=== PATIENT | female | born 1940 | race Caucasian/White ===

== ENCOUNTER 2016-10-24 19:22 | Emergency (ER) | payer OTHER, BC ==
[~2016-10-24] VITALS: Ht 157.5 cm; Wt 68.0 kg
--- NOTE | ~2016-10-24 | EKG ---
[place] [address] [facility] [place] [place] [address] ELECTROCARDIOGRAM REPORT Name: CRISTOPHER YEBOAH Room #: [facility]#: [id number] Admission: 10/24/16 Attend Phys: Discharge: 10/24/16 Date of : 38 Report #: [id number] THIS REPORT FOR: //name// [facility] ED Test Date: 2016-10-24 Test Time: 20:49:01 Pat Name: CRISTOPHER YEBOAH Department: Room: Gender: F Institute Director: Lucero EPSTEIN : 1940 Requested By: Forrest Talamantes Order Number: [id number] MD: Serjio Corbett Measurements Intervals [place] Rate: 101 P: 36 [place]: 151 QRS: -57 QRSD: 151 T: 81 QT: 390 QTc: 506 Interpretive Statements Sinus tachycardia Probable left atrial enlargement Right bundle branch block LVH with IVCD and secondary repol abnrm Electronically Signed On 10-25-2016 8:34:51 CDT by Serjio Corbett [email or web address] <ELECTRONICALLY SIGNED> By: Serjio Corbett MD 10/25/16 0834 2049 48 Serjio Corbett MD /LEONIE
[2016-10-24 19:52] LABS: HEMATOCRIT 42.5 % (37.0-47.0); HEMOGLOBIN 14.5 gm/dL (12.0-15.0); MANUAL DIFF YES; MCH 32.2 pg (26.0-34.0); MCHC 34.2 g/dL (28.0-37.0); PLATELET COUNT 272 thou/uL (150-400); RBC 4.52 mil/uL (4.20-5.00); RDW 14.5 % (10.5-14.5); WBC 9.7 thou/uL (4.0-11.0)
[2016-10-24 20:01] LABS: CALCIUM 9.1 mg/dL (8.5-10.1); CREATININE 0.9 mg/dL (0.6-1.0); POTASSIUM 3.7 mmol/L (3.5-5.1)
[2016-10-24 20:06] LABS: ALBUMIN 3.9 g/dL (3.4-5.0); TOTAL BILIRUBIN 0.6 mg/dL (<0.1-1.0); TOTAL PROTEIN 7.4 g/dL (6.4-8.2)
[2016-10-24 21:00] LABS: ABSOLUTE NEUTROPHILS 8.2 thou/uL (1.4-8.2); TOTAL CELL COUNT 100
[2016-10-24 21:01] LABS: ANISOCYTOSIS 1+; POLYCHROMASIA OCCASIONAL
[2016-10-24 21:02] LABS: POIKILOCYTOSIS SLIGHT
[2016-10-24] MEDS ORDERED: PROMETHAZINE/C118 ML PO (21:08)
[2016-10-24 21:09] LABS: NT-PRO BRAIN NAT PEPTIDE 45 pg/mL (<300); TROPONIN-I < 0.04 ng/mL (<0.04-0.07)
[2016-10-24] MEDS ORDERED: LEVAQUIN 750 M750 MG PO (21:10)
[2016-10-24] MEDS ORDERED: PROVENTIL HFA6.7 G1 INH (21:14)
[2016-10-24 21:36] VITALS: BP 138/93
== END 2016-10-24 21:38 | disposition home or self-care (01) ==
LOC: ER 19:22
PROVIDERS: Physician Assistant
DX: J18.9 Pneumonia, unspecified organism (principal); K21.9 Gastro-esophageal reflux disease without esophagitis; E78.00 Pure hypercholesterolemia, unspecified; M13.879 Other specified arthritis, unspecified ankle and foot; F10.99 Alcohol use, unspecified with unspecified alcohol-induced disorder; Z90.710 Acquired absence of both cervix and uterus; Z96.651 Presence of right artificial knee joint; Z85.3 Personal history of malignant neoplasm of breast; Z92.3 Personal history of irradiation; Z88.5 Allergy status to narcotic agent; Z88.8 Allergy status to other drugs, medicaments and biological substances

== ENCOUNTER 2016-10-25 21:21 | Inpatient (IN) | payer OTHER, BC ==
[~2016-10-25] VITALS: Ht 157.5 cm; Wt 83.5 kg
--- NOTE | ~2016-10-25 | CNG ---
[facility] [place] [address] CYTO-NONGYN REPORT PROCEDURE Name: JOHANNE ELI Room #: 247-P ADM IN M.R.#: [id number] Admission: 10/26/16 Date of : 38 Discharge: Report #: [id number] Path Case #: [id number] CYTOPATHOLOGY REPORT COLLECTION DATE: 10/28/2016 RECEIVED DATE: 10/30/2016 SUBMITTING PHYS: Dr. Madi Barr OTHER PHYS: Dr. Roni Wells CLINICAL HISTORY: Not provided. SPECIMEN(S) RECEIVED: A.Sputum * * * * * * * * * * * * FINAL DIAGNOSIS: A. Sputum: - No malignant cells identified. Reactive squamous epithelial cells present along with rare alveolar macrophages and a background of debris. PATHOLOGIST: Katie Quarles M.D. REPORT ELECTRONICALLY SIGNED BY: Katie Quarles M.D. DATE/TIME: 10/31/2016 15:45 * * * * * * * * * * * * GROSS PATHOLOGY: A. Sputum: The specimen is submitted unfixed, labeled "Johanne Eli". Received by the Cytology Department is two mL of red fluid. One ThinPrep slide was prepared. (clt 10.30.2016) LIMB DRIVER(S): KELLY Lerma[facility]) INITIAL CPT CODE(S): A; 17069 Professional services performed by [facility] at [facility] [address], [place] [address] Technical services performed by [facility] at [address] [place] [address]., [address], [place] [address]. [facility] [address] [place] [address], [address] [facility] [address] [place] [address] CYTO-NONGYN REPORT PROCEDURE Name: JOHANNE ELI Room #: 247-P ADM IN M.R.#: [id number] Admission: 10/26/16 Date of : 38 Discharge: Report #: [id number] Path Case #: [id number] [place] [address] PHONE: [phone] DIRECTOR: Hamlet Neal M.D. * * * END OF REPORT * * *
--- NOTE | ~2016-10-25 | HC ---
[facility] [place] [address] CONSULTATION Name: YEBOAHCRISTOPHER N Room #: [facility] IN M.R.#: [id number] Admission: 10/26/16 Attend Phys: David Tamayo MD Discharge: Date of : 39 Report #: [id number] THIS REPORT FOR: //name// CC: Madi Chan HISTORY OF PRESENT ILLNESS: The patient is a 76-year-old white female who was admitted to [facility] with acute respiratory failure. She was noted to have hypoxia and sepsis. She was placed on 15 liters nonrebreather. She was noted to have multifocal pneumonia, sepsis, and acute renal insufficiency. She was diagnosed with MRSA pneumonia. There is a note of some mild COPD. She has had some hyponatremia that has resolved. She is continuing in the intensive care unit, but plans are to transfer out today. Infectious disease is involved with noted bilateral pneumonia basilar with consolidation and cavitation, parainfluenza followed by an MRSA superinfection. She does have a dilated bile duct as well, question stone and gram-negative bacterial coverage was added. She has a premorbid history of lymphoma and breast cancer. We are seeing her now in rehabilitation medicine consultation. PAST MEDICAL HISTORY: Includes the hypertension, lymphoma, GERD, right breast cancer, elevated lipids, degenerative arthritis, and she has had a right total knee replacement. MEDICATIONS: Please see the full medication listing. SOCIAL HISTORY: She lives in an apartment alone, no steps, was independent, ambulatory, no gait aids, driving in the community. She does have an involved son who was an ENT physician here as well as noted multiple involved family members. REVIEW OF SYSTEMS: Did not offer any current complaints of chest pain or abdominal discomfort. She does have significant coughing and has some shortness of breath with limited activity. Did not offer any focal extremity pain complaints. PHYSICAL EXAMINATION: GENERAL: She is a pleasant 76-year-old white female, in no obvious distress. Facies are symmetric. She has considerable coughing episodes. VITAL SIGNS: Last recorded temp 96.8, pulse 90, respirations 21, blood pressure is 137/72. She is currently on 6 liters nasal prong O2. NEUROLOGIC: She is pleasant, alert, and a good historian. Facies appeared symmetric. EXTREMITIES: She has functional range of motion of both upper extremities. Strength is a grade 4-/5. DTRs are trace to 1. Lower extremities, no focal calf swelling, functional range of motion with strength a grade 4-/5. DTRs are [facility] [address] [place] [address] CONSULTATION Name: CRISTOPHER YEBOAH Room #: [facility] IN ..#: [id number] Admission: 10/26/16 Attend Phys: David Tamayo MD Discharge: Date of : 39 Report #: [id number] trace to 1. She is mod assist with sit to stand. She did take 4 steps mod assist, handheld assist. ASSESSMENT: A 76-year-old white female with the following problem list: 1. Medical complexity with generalized debilitation. 2. Acute respiratory failure with hypoxia. 3. Sepsis. 4. Bilateral pneumonia basilar with consolidation and cavitation, parainfluenza followed by methicillin-resistant Staphylococcus aureus superinfection. 5. History of lymphoma. 6. History of breast cancer. 7. Recent hemoptysis. 8. Dilated bile duct, question stone. 9. Degenerative arthritis. 10. Gastroesophageal reflux disease. 11. Elevated lipids. PLAN: We would anticipate the patient would be a good candidate for an acute in-hospital inpatient rehabilitation stay as she further medically stabilizes. I agree with physical therapy and occupational therapy currently involvement. We will be glad to follow along with you regarding her rehab therapy needs as she further medically stabilizes. By: 1140 1224 Cuauhtemoc Landeros MD /nt
--- NOTE | ~2016-10-25 | EKG ---
[place] [address] [facility] [place] [address] ELECTROCARDIOGRAM REPORT Name: CRISTOPHER YEBOAH Room #: 247-P ADM IN M.R.#: [id number] Admission: 10/26/16 Attend Phys: David Tamayo MD Discharge: Date of : 39 Report #: [id number] THIS REPORT FOR: //name// [facility] ED Test Date: 2016-10-25 Test Time: 22:00:20 Pat Name: CRISTOPHER YEBOAH Department: Room: [facility] Gender: F Banquet Prep Cook: NEFTALI : 1940 Requested By: Forrest Talamantes Order Number: [id number] MD: Earl Healy Measurements Intervals [place] Rate: 106 P: 21 [place]: 140 QRS: -51 QRSD: 133 T: 43 QT: 352 QTc: 468 Interpretive Statements Sinus tachycardia Right bundle branch block LVH with IVCD and secondary repol abnrm Compared to ECG 10/24/2016 20:49:01 No significant change was found Electronically Signed On 10-26-2016 17:32:40 CDT by Earl Healy [email or web address] <ELECTRONICALLY SIGNED> By: Earl Healy MD, LOCATED [facility]IN [facility] 10/26/16 1732 99 99 Earl Healy MD, [facility] /EPI
--- NOTE | ~2016-10-25 | 2DMMODE ---
[facility] [address] [place] [address] 2 D/M-MODE ECHOCARDIOGRAM Name: CRISTOPHER YEBOAH Room #: 247-P [facility] IN .R.#: [id number] Admission: 10/26/16 Attend Phys: Gabe Berg Discharge: Date of : 38 Date of Service: 10/26/16 1249 Report #: [id number] THIS REPORT FOR: //name// APPROVED REPORT Study performed: 10/26/2016 11:13:16 EXAM: Comprehensive 2D, Doppler, and color-flow Echocardiogram Patient Location: Bedside Room #: [facility] Status: routine Other Information Study Quality: Adequate Indications Dyspnea 2D Dimensions RVDd: 25.28 mm LVEF(%): 56.36 (>50%) IVSd: 8.75 (7-11mm) LVOT Diam: 20.34 (18-24mm) LVDd: 38.93 mm PWd: 7.91 (7-11mm) Ascending Ao: 30.62 (22-36mm) LVDs: 27.65 (25-40mm) Aortic Root: 28.54 mm Bonilla's LVEF: 56.36 % Volumes Left Atrial Volume (Systole) Single Plane 4CH: 29.47 mL Single Plane 2CH: 26.96 mL LA ESV Index: 17.00 mL/m2 Aortic Valve AoV Peak Cesar.: 1.49 m/s AO Peak Gr.: 8.82 mmHg LVOT Max P.74 mmHg LVOT Max V: 0.97 m/s GRIFFIN Vmax: 2.11 cm2 Mitral Valve E/A Ratio: 0.6 MV Decel. Time: 119.37 ms MV E Max Cesar.: 0.65 m/s MV A Cesar.: 1.01 m/s MV PHT: 34.62 ms IVRT: 76.12 ms [facility] [place] [address] 2 D/M-MODE ECHOCARDIOGRAM Name: CRISTOPHER YEBOAH Room #: 247-P [facility].#: [id number] Admission: 10/26/16 Attend Phys: Gabe Berg Discharge: Date of : 38 Date of Service: 10/26/16 1249 Report #: [id number] Pulmonary Valve PV Peak Cesar.: 1.00 m/s PV Peak Gr.: 4.03 mmHg Pulmonary Vein P Vein S: 0.57 m/s P Vein A: 0.42 m/s P Vein D: 0.64 m/s P Vein A Dur.: 86.5 msec P Vein S/D Ratio: 0.89 Tricuspid Valve TR Peak Cesar.: 2.65 m/s RAP Estimate: 5.00 mmHg TR Peak Gr.: 28.13 mmHg PA Pressure: 33.00 mmHg Left Ventricle The left ventricle is normal size. There is normal LV segmental wall motion. There is normal left ventricular wall thickness. Left ventricular systolic function is normal. LVEF is 55%. Grade I diastolic dysfunction Right Ventricle The right ventricle is normal size. The right ventricular systolic function is normal. Atria The left atrium size is normal. The right atrium size is normal. Aortic Valve The aortic valve is normal in structure, trileaflet. No aortic regurgitation is present. There is no aortic valvular stenosis. Mitral Valve The mitral valve is normal in structure. No mitral regurgitation. No evidence of mitral valve stenosis. Tricuspid Valve The tricuspid valve is normal in structure. There is mild tricuspid regurgitation. The right atrial pressure is estimated at 5 mmHg. There is mild pulmonary hypertension with an estimated PAP of 33mmHg. Pulmonic Valve The pulmonary valve is normal in structure. Mild pulmonic regurgitation. [facility] [address] [place] [address] 2 D/M-MODE ECHOCARDIOGRAM Name: CRISTOPHER YEBOAH [place] Room #: 247-P ADM IN ..#: [id number] Admission: 10/26/16 Attend Phys: Gabe Berg Discharge: Date of : 38 Date of Service: 10/26/16 1249 Report #: [id number] Great Vessels The aortic root is normal in size. The ascending aorta is normal in size. IVC is normal in size and collapses >50% with inspiration. Pericardium There is no pericardial effusion. <Conclusion> Left ventricular systolic function is normal. There is normal LV segmental wall motion. LVEF is 55%. Grade I diastolic dysfunction The aortic valve is normal in structure, trileaflet. No aortic regurgitation or stenosis The mitral valve is normal in structure. No mitral regurgitation. Pulmonary artery pressure of 35mmHg There is no pericardial effusion. <ELECTRONICALLY SIGNED> By: Earl Healy MD, FACC 10/26/16 1249 1249 1249 Earl Healy MD, FACC /INF
--- NOTE | ~2016-10-25 | CNG ---
[facility] [place] [address] CYTO-NONGYN REPORT PROCEDURE Name: JOHANNE ELI [place] Room #: 247-P ADM IN M.R.#: [id number] Admission: 10/26/16 Date of : 38 Discharge: Report #: [id number] Path Case #: [id number] CYTOPATHOLOGY REPORT COLLECTION DATE: 10/26/2016 RECEIVED DATE: 10/26/2016 SUBMITTING PHYS: Dr. Madi Barr OTHER PHYS: Dr. Roni Chan CLINICAL HISTORY: Pneumonia, sepsis. SPECIMEN(S) RECEIVED: A.Sputum * * * * * * * * * * * * FINAL DIAGNOSIS: A. Sputum: No malignant cells identified. -Reactive squamous epithelial cells identified along with alveolar macrophages and acute inflammation. PATHOLOGIST: Katie Quarles M.D. REPORT ELECTRONICALLY SIGNED BY: Katie Quarles M.D. DATE/TIME: 10/27/2016 14:37 * * * * * * * * * * * * GROSS PATHOLOGY: A. Sputum: The specimen is submitted unfixed, labeled "Johanne Eli". Received by the Cytology Department is one mL of yellow fluid. One ThinPrep slide was prepared. (clt 10.26.2016) LOOM OPERATOR(S): KELLY Mina[facility] INITIAL CPT CODE(S): A; 03850 Professional services performed by [facility] at [facility] [address] [place] [address] Technical services performed by [facility] at [address] [place] [address]., [address], [place] [address]. [facility] [address] [place] [address], [address] [place] [address] PHONE: [phone] [facility] [address] [place] [address] CYTO-NONGYN REPORT PROCEDURE Name: JOHANNE ELI Room #: 247-P ADM IN M.R.#: [id number] Admission: 10/26/16 Date of : 38 Discharge: Report #: [id number] Path Case #: [id number] DIRECTOR: Hamlet Neal M.D. * * * END OF REPORT * * *
[~2016-10-25 21:21] MED LIST: LEVAQUIN 750 M750 MG PO; PROMETHAZINE/C118 ML PO; PROVENTIL HFA6.7 G1 INH
[2016-10-25 21:24] VITALS: BP 111/59
[2016-10-25 21:56] LABS: ABG SAMPLE TYPE ARTERIAL; BE(vivo) 3.4 mmol/L (-2 to +3); LACTATE 3.73 mmol/L (0.5-2.0); O2(CT) 17.3 mL/dL (15.0-23.0); O2Hb 84.7 % (92.0-98.0); PCO2 33.5 mmHg (35.0-45.0); pH 7.508 (7.360-7.450); sO2 86.3 % (92.0-98.0)
[2016-10-25 21:57] LABS: PO2 45.9 mmHg (80.0-100.0)
[2016-10-25 22:09] LABS: HEMATOCRIT 41.3 % (37.0-47.0); HEMOGLOBIN 14.2 gm/dL (12.0-15.0); MCH 31.7 pg (26.0-34.0); MCHC 34.3 g/dL (28.0-37.0); MCV 92.6 fL (80.0-100.0); PLATELET COUNT 255 thou/uL (150-400); RBC 4.46 mil/uL (4.20-5.00); RDW 14.7 % (10.5-14.5); WBC 6.2 thou/uL (4.0-11.0)
[2016-10-25 22:13] LABS: MANUAL DIFF YES
[2016-10-25 22:18] LABS: ANION GAP 10 mmol/L (7-16); BUN 23 mg/dL (7-18); CALCIUM 8.7 mg/dL (8.5-10.1); CHLORIDE 93 mmol/L (98-107); CO2 26 mmol/L (21-32); CREATININE 1.3 mg/dL (0.6-1.0); GLUCOSE 157 mg/dL (74-106); POTASSIUM 3.7 mmol/L (3.5-5.1); SODIUM 129 mmol/L (136-145)
[2016-10-25 22:25] LABS: ALBUMIN 3.3 g/dL (3.4-5.0); ALKALINE PHOSPHATASE 90 U/L (46-116); SGOT 25 U/L (15-37); SGPT 24 U/L (30-65); TOTAL BILIRUBIN 1.6 mg/dL (<0.1-1.0); TOTAL PROTEIN 6.9 g/dL (6.4-8.2); TROPONIN-I < 0.04 ng/mL (<0.04-0.07)
[2016-10-25 22:27] LABS: ABSOLUTE NEUTROPHILS 5.4 thou/uL (1.4-8.2); METAMYELOCYTES 1 %; TOTAL CELL COUNT 100
[2016-10-25 22:28] LABS: ANISOCYTOSIS 1+; POLYCHROMASIA OCCASIONAL
[2016-10-26] VITALS (36 sets, daily range): BP systolic 86–145; BP diastolic 40–72
[2016-10-26] MEDS ORDERED: OMEPRAZOLE40 MG PO (01:12)
[2016-10-26] MEDS ORDERED: DIOVAN 80 MG TA80 M1 PO (01:13)
[2016-10-26] MEDS ORDERED: CRESTOR10 MG PO (01:13)
[2016-10-26] MEDS ORDERED: HYDROCHLOROTHIA25 M2 PO (01:13)
[2016-10-26] MEDS ORDERED: VALIUM5 MG PO (01:14)
[2016-10-26 08:21] LABS: ABG SAMPLE TYPE ARTERIAL; BE(vivo) -2.8 mmol/L (-2 to +3); HCO3 21.4 mmol/L (22.0-26.0); LACTATE 2.65 mmol/L (0.5-2.0); O2(CT) 17.5 mL/dL (15.0-23.0); O2Hb 89.4 % (92.0-98.0); PCO2 35.7 mmHg (35.0-45.0); PO2 58.6 mmHg (80.0-100.0); pH 7.396 (7.360-7.450); sO2 90.6 % (92.0-98.0); tCO2 22.5 mmol/L (24.0-30.0)
[2016-10-26 08:23] LABS: STICK SITE R.RADIAL
[2016-10-26 10:25] LABS: HEMATOCRIT 40.2 % (37.0-47.0); HEMOGLOBIN 13.4 gm/dL (12.0-15.0); MCH 31.8 pg (26.0-34.0); MCHC 33.4 g/dL (28.0-37.0); MCV 95.4 fL (80.0-100.0); PLATELET COUNT 214 thou/uL (150-400); RBC 4.21 mil/uL (4.20-5.00); RDW 14.8 % (10.5-14.5); WBC 3.9 thou/uL (4.0-11.0)
[2016-10-26 10:38] LABS: MANUAL DIFF YES
[2016-10-26 10:44] LABS: NT-PRO BRAIN NAT PEPTIDE 1451 pg/mL (<300); TROPONIN-I < 0.04 ng/mL (<0.04-0.07)
[2016-10-26 10:47] LABS: ALBUMIN 2.5 g/dL (3.4-5.0); CALCIUM 7.9 mg/dL (8.5-10.1); CREATININE 1.3 mg/dL (0.6-1.0); TOTAL BILIRUBIN 1.7 mg/dL (<0.1-1.0)
[2016-10-26 12:13] LABS: ABSOLUTE NEUTROPHILS 3.5 thou/uL (1.4-8.2); METAMYELOCYTES 4 %; TOTAL CELL COUNT 100
[2016-10-26 12:14] LABS: ANISOCYTOSIS 1+; TARGET CELLS 1+
[2016-10-26 19:12] LABS: IgA 122 mg/dL (64-422); IgG 496 mg/dL (700-1600); IgM 168 mg/dL (26-217)
[2016-10-26 21:06] LABS: HIV ANTIBODY Non Reactive (Non Reactive)
[2016-10-27] VITALS (25 sets, daily range): BP systolic 86–145; BP diastolic 51–75
[2016-10-27 05:29] LABS: ABG SAMPLE TYPE ARTERIAL; BE(vivo) -1.7 mmol/L (-2 to +3); HCO3 22.5 mmol/L (22.0-26.0); LACTATE 3.23 mmol/L (0.5-2.0); O2(CT) 17.2 mL/dL (15.0-23.0); O2Hb 89.8 % (92.0-98.0); PCO2 36.5 mmHg (35.0-45.0); pH 7.407 (7.360-7.450); sO2 89.5 % (92.0-98.0); tCO2 23.6 mmol/L (24.0-30.0)
[2016-10-27 05:30] LABS: PO2 55.9 mmHg (80.0-100.0); STICK SITE LRA
[2016-10-27 05:54] LABS: HEMOGLOBIN 12.9 gm/dL (12.0-15.0)
[2016-10-27 05:56] LABS: HEMATOCRIT 37.9 % (37.0-47.0); MCH 32.1 pg (26.0-34.0); MCHC 34.1 g/dL (28.0-37.0); MCV 94.1 fL (80.0-100.0); PLATELET COUNT 213 thou/uL (150-400); RBC 4.03 mil/uL (4.20-5.00); RDW 14.9 % (10.5-14.5); WBC 10.1 thou/uL (4.0-11.0)
[2016-10-27 05:57] LABS: MANUAL DIFF YES
[2016-10-27 06:18] LABS: ALBUMIN 2.1 g/dL (3.4-5.0); CALCIUM 8.2 mg/dL (8.5-10.1); POTASSIUM 3.8 mmol/L (3.5-5.1); TOTAL BILIRUBIN 1.1 mg/dL (<0.1-1.0); TOTAL PROTEIN 6.1 g/dL (6.4-8.2)
[2016-10-27 07:50] LABS: ABSOLUTE NEUTROPHILS 8.8 thou/uL (1.4-8.2); METAMYELOCYTES 5 %; TOTAL CELL COUNT 100
[2016-10-27 07:51] LABS: ANISOCYTOSIS SLIGHT
[2016-10-27 09:08] LABS: APTT 36.6 Seconds (24.5-32.8); INR 1.1; PROTIME 10.7 Seconds (9.3-11.4)
[2016-10-28] VITALS (23 sets, daily range): BP systolic 96–147; BP diastolic 52–106
[2016-10-28 06:18] LABS: HEMATOCRIT 38.2 % (37.0-47.0); HEMOGLOBIN 12.6 gm/dL (12.0-15.0); MCH 31.2 pg (26.0-34.0); MCHC 33.1 g/dL (28.0-37.0); MCV 94.3 fL (80.0-100.0); RBC 4.05 mil/uL (4.20-5.00); RDW 14.9 % (10.5-14.5); WBC 14.5 thou/uL (4.0-11.0)
[2016-10-28 06:20] LABS: CALCIUM 9.3 mg/dL (8.5-10.1); POTASSIUM 3.9 mmol/L (3.5-5.1)
[2016-10-28 21:07] LABS: ANGIOTENSIN CONVERTNG ENZ < 15 U/L (14-82)
[2016-10-29] VITALS (23 sets, daily range): BP systolic 114–173; BP diastolic 62–110
[2016-10-29 04:41] LABS: HEMATOCRIT 35.8 % (37.0-47.0); HEMOGLOBIN 11.9 gm/dL (12.0-15.0); MCH 31.3 pg (26.0-34.0); MCHC 33.2 g/dL (28.0-37.0); MCV 94.2 fL (80.0-100.0); PLATELET COUNT 206 thou/uL (150-400); RDW 15.3 % (10.5-14.5); WBC 18.8 thou/uL (4.0-11.0)
[2016-10-29 04:46] LABS: MANUAL DIFF YES
[2016-10-29 05:58] LABS: ABSOLUTE NEUTROPHILS 14.5 thou/uL (1.4-8.2); METAMYELOCYTES 5 %; MYELOCYTES 6 %; PROMYELOCYTES 2 %; TOTAL CELL COUNT 100
[2016-10-29 07:41] LABS: CALCIUM 8.7 mg/dL (8.5-10.1); POTASSIUM 4.5 mmol/L (3.5-5.1)
[2016-10-29 07:46] LABS: ALBUMIN 1.9 g/dL (3.4-5.0); TOTAL BILIRUBIN 1.3 mg/dL (<0.1-1.0); TOTAL PROTEIN 5.8 g/dL (6.4-8.2)
[2016-10-30] VITALS (23 sets, daily range): BP systolic 107–189; BP diastolic 62–138
[2016-10-30 05:09] LABS: HEMATOCRIT 38.5 % (37.0-47.0); HEMOGLOBIN 12.7 gm/dL (12.0-15.0); MCH 31.1 pg (26.0-34.0); MCHC 33.1 g/dL (28.0-37.0); PLATELET COUNT 216 thou/uL (150-400); RDW 15.3 % (10.5-14.5); WBC 22.7 thou/uL (4.0-11.0)
[2016-10-30 05:21] LABS: ALBUMIN 1.9 g/dL (3.4-5.0); CREATININE 0.9 mg/dL (0.6-1.0); TOTAL BILIRUBIN 1.5 mg/dL (<0.1-1.0); TOTAL PROTEIN 6.2 g/dL (6.4-8.2)
[2016-10-30 05:24] LABS: MANUAL DIFF YES
[2016-10-30 09:02] LABS: ABSOLUTE NEUTROPHILS 18.4 thou/uL (1.4-8.2); METAMYELOCYTES 5 %; NUCLEATED RBCS 1 /100WBC; PLATELET ESTIMATE NORMAL; TOTAL CELL COUNT 100
[2016-10-30 17:09] LABS: c-ANCA <1:20 titer (Neg:<1:20); p-ANCA <1:20 titer (Neg:<1:20)
[2016-10-31] VITALS (24 sets, daily range): BP systolic 106–164; BP diastolic 56–86
[2016-10-31 04:51] LABS: HEMATOCRIT 39.3 % (37.0-47.0); HEMOGLOBIN 13.3 gm/dL (12.0-15.0); MCH 31.3 pg (26.0-34.0); MCHC 33.8 g/dL (28.0-37.0); MCV 92.8 fL (80.0-100.0); PLATELET COUNT 246 thou/uL (150-400); RBC 4.23 mil/uL (4.20-5.00); RDW 15.8 % (10.5-14.5); WBC 30.9 thou/uL (4.0-11.0)
[2016-10-31 04:59] LABS: CALCIUM 9.2 mg/dL (8.5-10.1); CREATININE 0.8 mg/dL (0.6-1.0); POTASSIUM 4.9 mmol/L (3.5-5.1)
[2016-10-31 05:02] LABS: MANUAL DIFF YES
[2016-10-31 05:05] LABS: DIRECT BILIRUBIN 0.9 mg/dL (<0.1-0.3); MAGNESIUM 1.8 mg/dL (1.8-2.4); TOTAL BILIRUBIN 1.3 mg/dL (<0.1-1.0); TOTAL PROTEIN 5.7 g/dL (6.4-8.2)
[2016-10-31 05:56] LABS: ABSOLUTE NEUTROPHILS 25.6 thou/uL (1.4-8.2); METAMYELOCYTES 5 %; MYELOCYTES 3 %; PROMYELOCYTES 1 %; TOTAL CELL COUNT 100; TOXIC GRANULATION 1+
[2016-11-01] VITALS (25 sets, daily range): BP systolic 95–165; BP diastolic 56–108
[2016-11-01 01:13] LABS: IgG 504 mg/dL (700-1600)
[2016-11-01 05:35] LABS: HEMATOCRIT 33.3 % (37.0-47.0); MCH 31.1 pg (26.0-34.0); MCHC 33.4 g/dL (28.0-37.0); MCV 93.1 fL (80.0-100.0); PLATELET COUNT 200 thou/uL (150-400); RBC 3.58 mil/uL (4.20-5.00); RDW 15.4 % (10.5-14.5); WBC 24.4 thou/uL (4.0-11.0)
[2016-11-01 05:41] LABS: HEMOGLOBIN 11.1 gm/dL (12.0-15.0); MANUAL DIFF YES
[2016-11-01 05:57] LABS: ALBUMIN 1.5 g/dL (3.4-5.0); CALCIUM 8.7 mg/dL (8.5-10.1); CREATININE 0.6 mg/dL (0.6-1.0); POTASSIUM 4.2 mmol/L (3.5-5.1); TOTAL BILIRUBIN 0.7 mg/dL (<0.1-1.0); TOTAL PROTEIN 5.4 g/dL (6.4-8.2)
[2016-11-01 09:26] LABS: METAMYELOCYTES 10 %; MYELOCYTES 4 %; PLATELET ESTIMATE NORMAL; PROMYELOCYTES 1 %; TOTAL CELL COUNT 100
[2016-11-01 10:10] LABS: ASPERGILLUS FLAVUS Positive (Negative); ASPERGILLUS FUMIGATIS #1 Negative (Negative); ASPERGILLUS FUMIGATIS #2 Negative (NEGATIVE); ASPERGILLUS FUMIGATIS #3 Negative (NEGATIVE); ASPERGILLUS FUMIGATIS #6 Negative (NEGATIVE); AUREO PULLULANS Negative (Negative); MICROPOLYSPOR FAENI Negative (Negative); PIGEON SERUM Negative (Negative); SACCHAR. VIRIDIS Negative (Negative); THERM.CANDIDUS Negative (Negative); THERM.SACCHARI Negative (Negative); THERMOACTINOMYCE VULGARIS Negative (Negative)
[2016-11-01 16:03] LABS: INFLUENZA B Negative; METAPNEUMOVIRUS Negative
[2016-11-01 17:11] LABS: BLASTOMYCES-IMMUNODIFF Negative (Neg:<1:1); HISTOPLASMA-IMMUNODIFF Negative (Neg:<1:1)
[2016-11-02] VITALS (24 sets, daily range): BP systolic 102–159; BP diastolic 55–97
[2016-11-02 05:28] LABS: HEMATOCRIT 32.4 % (37.0-47.0); HEMOGLOBIN 10.9 gm/dL (12.0-15.0); MANUAL DIFF YES; MCH 30.8 pg (26.0-34.0); MCHC 33.6 g/dL (28.0-37.0); MCV 91.8 fL (80.0-100.0); PLATELET COUNT 228 thou/uL (150-400); RBC 3.53 mil/uL (4.20-5.00); WBC 21.7 thou/uL (4.0-11.0)
[2016-11-02 05:40] LABS: ALBUMIN 1.5 g/dL (3.4-5.0); CALCIUM 8.6 mg/dL (8.5-10.1); CREATININE 0.6 mg/dL (0.6-1.0); DIRECT BILIRUBIN 0.3 mg/dL (<0.1-0.3); MAGNESIUM 1.6 mg/dL (1.8-2.4); POTASSIUM 4.1 mmol/L (3.5-5.1); TOTAL BILIRUBIN 0.6 mg/dL (<0.1-1.0); TOTAL PROTEIN 5.4 g/dL (6.4-8.2)
[2016-11-02 06:03] LABS: ABSOLUTE NEUTROPHILS 17.1 thou/uL (1.4-8.2); METAMYELOCYTES 3 %; MYELOCYTES 6 %; PROMYELOCYTES 1 %; TOTAL CELL COUNT 100
[2016-11-02 06:04] LABS: ANISOCYTOSIS 1+
[2016-11-02 09:06] LABS: NIL (NEGATIVE) CONTROL SPOT CT 0; PANEL A SPOT CT 0; PANEL B SPOT CT 0; T-SPOT.TB Negative
[2016-11-02 09:07] LABS: POSITIVE CONTROL SPOT COUNT > 20
[2016-11-02 18:10] LABS: ASPERGILLUS FLAVUS-ID Negative (Neg:<1:1); ASPERGILLUS FUMIGATUS-ID Negative (Neg:<1:1); ASPERGILLUS NIGER-ID Negative (Neg:<1:1)
[2016-11-03] VITALS (23 sets, daily range): BP systolic 116–171; BP diastolic 59–84
[2016-11-03 05:24] LABS: HEMATOCRIT 34.2 % (37.0-47.0); HEMOGLOBIN 11.2 gm/dL (12.0-15.0); MCH 30.5 pg (26.0-34.0); MCHC 32.9 g/dL (28.0-37.0); MCV 92.7 fL (80.0-100.0); RBC 3.68 mil/uL (4.20-5.00); RDW 15.3 % (10.5-14.5); WBC 19.1 thou/uL (4.0-11.0)
[2016-11-03 05:35] LABS: CALCIUM 9.1 mg/dL (8.5-10.1); CREATININE 0.5 mg/dL (0.6-1.0)
[2016-11-04] VITALS (24 sets, daily range): BP systolic 106–176; BP diastolic 55–82
[2016-11-04 05:26] LABS: HEMATOCRIT 33.2 % (37.0-47.0); HEMOGLOBIN 11.2 gm/dL (12.0-15.0); MCH 31.1 pg (26.0-34.0); MCHC 33.8 g/dL (28.0-37.0); MCV 92.2 fL (80.0-100.0); RBC 3.6 mil/uL (4.20-5.00); WBC 16.6 thou/uL (4.0-11.0)
[2016-11-04 05:49] LABS: CALCIUM 9.1 mg/dL (8.5-10.1); CREATININE 0.6 mg/dL (0.6-1.0); POTASSIUM 3.8 mmol/L (3.5-5.1)
[2016-11-05] VITALS (24 sets, daily range): BP systolic 108–158; BP diastolic 46–101
[2016-11-05 05:42] LABS: HEMATOCRIT 30.6 % (37.0-47.0); HEMOGLOBIN 10.3 gm/dL (12.0-15.0); MCH 31.3 pg (26.0-34.0); MCHC 33.8 g/dL (28.0-37.0); MCV 92.5 fL (80.0-100.0); RBC 3.31 mil/uL (4.20-5.00); RDW 14.7 % (10.5-14.5); WBC 13.6 thou/uL (4.0-11.0)
[2016-11-05 06:00] LABS: CALCIUM 9.3 mg/dL (8.5-10.1); CREATININE 0.7 mg/dL (0.6-1.0); PHOSPHORUS 3.8 mg/dL (2.5-4.9); POTASSIUM 4.3 mmol/L (3.5-5.1)
[2016-11-06] VITALS (17 sets, daily range): BP systolic 101–167; BP diastolic 45–84
[2016-11-06 05:45] LABS: HEMOGLOBIN 10.9 gm/dL (12.0-15.0); MCH 31.3 pg (26.0-34.0); MCHC 33.9 g/dL (28.0-37.0); MCV 92.2 fL (80.0-100.0); PLATELET COUNT 440 thou/uL (150-400); RBC 3.47 mil/uL (4.20-5.00); RDW 15.2 % (10.5-14.5); WBC 11.2 thou/uL (4.0-11.0)
[2016-11-06 06:03] LABS: MANUAL DIFF YES
[2016-11-06 06:05] LABS: ALBUMIN 2.1 g/dL (3.4-5.0); CALCIUM 8.8 mg/dL (8.5-10.1); CREATININE 0.6 mg/dL (0.6-1.0); POTASSIUM 4.2 mmol/L (3.5-5.1); TOTAL BILIRUBIN 0.7 mg/dL (<0.1-1.0)
[2016-11-06 07:12] LABS: ABSOLUTE NEUTROPHILS 8.8 thou/uL (1.4-8.2); METAMYELOCYTES 7 %; TOTAL CELL COUNT 100
[2016-11-06 07:13] LABS: ANISOCYTOSIS 1+
[2016-11-07 04:54] VITALS: BP 111/53
[2016-11-07 05:32] LABS: HEMATOCRIT 31.9 % (37.0-47.0); HEMOGLOBIN 10.8 gm/dL (12.0-15.0); MCH 31.6 pg (26.0-34.0); MCHC 33.9 g/dL (28.0-37.0); MCV 93.3 fL (80.0-100.0); RBC 3.42 mil/uL (4.20-5.00); RDW 14.8 % (10.5-14.5); WBC 12.7 thou/uL (4.0-11.0)
[2016-11-07 05:55] LABS: CALCIUM 9.3 mg/dL (8.5-10.1); CREATININE 0.7 mg/dL (0.6-1.0); POTASSIUM 4.2 mmol/L (3.5-5.1)
[2016-11-07 08:47] VITALS: BP 128/69
[2016-11-07 13:05] VITALS: BP 110/60
[2016-11-07] MEDS ORDERED: ENOXAPARIN40 MG/0.1 SUBQ (14:33)
[2016-11-07] MEDS ORDERED: BISAC-EVAC10 MG RECTAL (14:33)
[2016-11-07] MEDS ORDERED: ALBUTEROL2.5 MG/0.5 INH (14:33)
[2016-11-07] MEDS ORDERED: PREDNISONE 20 M20 M1 PO (14:33)
[2016-11-07] MEDS ORDERED: METAMUCIL PAC1 UDPKT PO (14:33)
[2016-11-07] MEDS ORDERED: LIDODERM 5%1 PATC1 TRANSDERM (14:33)
[2016-11-07] MEDS ORDERED: DEEP SEA NASAL44 M1 NASAL (14:33)
[2016-11-07] MEDS ORDERED: DUONEB 2.5-0.5 M3 ML INH (14:33)
[2016-11-07] MEDS ORDERED: MUCINEX600 MG PO (14:33)
[2016-11-07] MEDS ORDERED: CATHFLO ACT2 MG/VIAL INJECTION (14:33)
[2016-11-07] MEDS ORDERED: COLACE 100 MG100 MG PO (14:33)
[2016-11-07] MEDS ORDERED: MIRALAX17 GM PO (14:33)
[2016-11-07] MEDS ORDERED: PROBIOTIC1 EAC1 PO (14:35)
[2016-11-07] MEDS ORDERED: ZYVOX600 MG/300 IVPB (14:35)
== END 2016-11-07 16:44 | DRG 871 ==
LOC: ER 21:21 → EROBS 10-26 00:01 → ICU 10-26 00:01 → 4W 11-06 16:21
PROVIDERS: Family Medicine; Hospitalist; Internal Medicine Pulmonary Disease; Nurse Practitioner; Physician Assistant; Specialist
PROC: 02HV33Z Insertion of Infusion Device into Superior Vena Cava, Percutaneous Approach (ICD-10-PCS; principal; 2016-10-26)
PROC: 5A09457 Assistance with Respiratory Ventilation, 24-96 Consecutive Hours, Continuous Positive Airway Pressure (ICD-10-PCS; 2016-10-30)
DX: A41.9 Sepsis, unspecified organism (principal); J15.212 Pneumonia due to Methicillin resistant Staphylococcus aureus; J96.01 Acute respiratory failure with hypoxia; J44.0 Chronic obstructive pulmonary disease with (acute) lower respiratory infection; E87.1 Hypo-osmolality and hyponatremia; E44.1 Mild protein-calorie malnutrition; N17.9 Acute kidney failure, unspecified; D84.9 Immunodeficiency, unspecified; K83.8 Other specified diseases of biliary tract; E78.5 Hyperlipidemia, unspecified; I10 Essential (primary) hypertension; K59.00 Constipation, unspecified; K21.9 Gastro-esophageal reflux disease without esophagitis; M19.90 Unspecified osteoarthritis, unspecified site; Z96.651 Presence of right artificial knee joint; Z85.3 Personal history of malignant neoplasm of breast; Z90.710 Acquired absence of both cervix and uterus; Z85.72 Personal history of non-Hodgkin lymphomas; Z92.3 Personal history of irradiation; Z88.8 Allergy status to other drugs, medicaments and biological substances; Z88.6 Allergy status to analgesic agent; Z68.33 Body mass index [BMI] 33.0-33.9, adult; Z87.891 Personal history of nicotine dependence
CPT/HCPCS: 10045; 10078; 27000

== ENCOUNTER 2016-11-07 10:41 | Inpatient (IN) | payer OTHER, BC ==
[~2016-11-07] VITALS: Ht 157.5 cm; Wt 77.1 kg
--- NOTE | ~2016-11-07 | PLAN ---
[facility] [address] [place] [address] REHAB UNIT PLAN OF CARE Name: CRISTOPHER YEBOAH Room #: 516-1 ADM IN M.R.#: [id number] Admission: 11/07/16 Attend Phys: Cuauhtemoc Landeros MD Discharge: Date of : 38 Report #: [id number] THIS REPORT FOR: //name// CC: Cuauhtemoc Landeros Prudencio Chan The patient seen back today in followup. She is in no distress. Last recorded temperature 36.6, pulse 79, respirations 20, blood pressure 130/78. The patient is alert, pleasant. She is improving. Her oxygen saturation has been turned down to 2 liters this morning. She has been 4 liters up until this point. Pulmonary medicine is closely involved. She is transferring now with standby assistance and is ambulating up to 125 feet standby assistance without a device. She did go up and down 12 steps contact guard assistance. In occupational therapy, lower body dressing is contact guard, upper body dressing is min assist. ASSESSMENT: 1. Pulmonary rehabilitation. 2. Medical complexity with generalized debilitation. 3. Acute respiratory failure with hypoxia. 4. Sepsis. 5. Bilateral pneumonia basilar with consolidation and cavitation para influenza followed by MRSA superinfection. 6. History of lymphoma. 7. History of breast cancer. 8. Recent hemoptysis. 9. Dilated bile duct, question stone. 10. Degenerative arthritis. 11. GERD 13. Elevated lipids. PLAN: The overall plan of care is based on the preadmission screen, post-admission physician evaluation and information garnered from therapy assessments. 1. Estimated length of stay is probably at least 10 days to 2 weeks. 2. Medical prognosis is reasonably good. 3. Anticipated interventions includes the interdisciplinary acute inpatient rehabilitation program with PT and OT working with her, rehab nursing assisting regarding medication managements, skin care prophylaxis, bowel and bladder issues and nursing education. The interdisciplinary team is involved. The multiple alliance consultant physicians are asked to continue to follow. 4. Anticipated functional outcomes would be for the patient to improve to the point where she was ambulatory at least with the walker and hopefully we can taper off that oxygen. 5. Discharge destination will be back to the home setting where she lives by herself. 6. Expected therapy by discipline includes PT and OT 1-1/2 hours per day each five days a week throughout the duration of the acute inpatient rehabilitation stay. <ELECTRONICALLY SIGNED> By: Cuauhtemoc Landeros MD 11/16/16 1350 1001 1059 Cuauhtemoc Landeros MD /nt
--- NOTE | ~2016-11-07 | H ---
[facility] [address] [place] [address] HISTORY AND PHYSICAL Name: CRISTOPHER YEBOAH [place] Room #: 516-1 ADM IN M.R.#: [id number] Admission: 11/07/16 Attend Phys: Cuauhtemoc Landeros MD Discharge: Date of : 38 Report #: [id number] THIS REPORT FOR: //name// CC: Cuauhtemoc Flannery Dustin DATE OF SERVICE: 11/08/2016 HISTORY AND PHYSICAL/POST-ADMISSION PHYSICIAN EVALUATION HISTORY OF PRESENT ILLNESS: The patient is a 76-year-old white female originally admitted to [facility] with acute respiratory failure. She was noted to have hypoxia and sepsis. She was initially placed on 15 liters nonrebreather. She was diagnosed with multifocal pneumonia, sepsis and acute renal insufficiency. She was diagnosed with MRSA pneumonia. Infectious disease noted bilateral pneumonia basilar with consolidation and cavitation, parainfluenza followed by an MRSA superinfection. She was treated in the intensive care unit. She was noted to have a dilated bile duct as well with question stone and gram-negative bacterial coverage was added. She has a premorbid history of lymphoma and breast cancer. She gradually was able to improve and be discharged out of intensive care. She continues on the antibiotics and is on corticosteroids. Her O2 needs have dropped down now to currently needing 5 liters. She is significantly debilitated, has medical complexity and pulmonary rehabilitation needs and has now been admitted for acute in-hospital inpatient rehabilitation. PAST MEDICAL HISTORY: Includes hypertension, lymphoma, GERD, right breast cancer, elevated lipids, degenerative arthritis and she has had a prior right total knee replacement. MEDICATIONS: Please see the full medication listing. SOCIAL HISTORY: Lives in an apartment alone, no steps. She was independent, ambulatory, no gait aids, driving in the community. She has an involved son who was noted to be an ENT physician. She has multiple involved family members. REVIEW OF SYSTEMS: No current complaints of chest pain or abdominal discomfort. She has a considerable cough, which is decreasing some in its severity. She has shortness of breath with limited activity. No focal extremity pain complaints. Did not complain of any headache or any bowel or bladder changes. PHYSICAL EXAMINATION: GENERAL: Pleasant 76-year-old white female in no obvious distress. VITAL SIGNS: Temperature 97.8, pulse 84, respirations 18, blood pressure is 120/60. She is currently on 5 liters nasal prong O2. She is a good historian. HEENT: Facies are symmetric. [facility] [address] [address] HISTORY AND PHYSICAL Name: CRISTOPHER YEBOAH [place] Room #: 516-1 [facility]#: [id number] Admission: 11/07/16 Attend Phys: Cuauhtemoc Landeros MD Discharge: Date of : 38 Report #: [id number] CHEST: She does have some decreased breath sounds diffusely with some sounds. CARDIAC: Sounded regular rate and rhythm. ABDOMEN: Bowel sounds positive, nontender. GENITOURINARY AND RECTAL: Deferred. EXTREMITIES: She has functional range of motion of both upper extremities with strength grade 4-/5. DTRs are trace to 1. Lower extremities, no focal calf swelling, functional range of motion with strength grade 4-/5. DTRs are trace to 1. She is moving a little better now with transfers more of a min assist and is ambulating a short distance with contact to min assist. She is utilizing a roller walker. ASSESSMENT: A 76-year-old white female with the following problem list: 1. Pulmonary rehabilitation. 2. Medical complexity with generalized debilitation. 3. Acute respiratory failure with hypoxia. 4. Sepsis. 5. Bilateral pneumonia basilar with consolidation and cavitation, parainfluenza followed by methicillin-resistant Staphylococcus aureus superinfection. 6. History of lymphoma. 7. History of breast cancer. 8. Recent hemoptysis. 9. Dilated bile duct, question stone. 10. Degenerative arthritis. 11. Gastroesophageal reflux disease. 12. Elevated lipids. PLAN: The patient is admitted for acute in-hospital inpatient rehabilitation. From a post-admission physician evaluation perspective, there are no relevant changes since the preadmission screening. Please see the above review of prior and current medical and functional conditions and comorbidities. Please see the patient's previous and current functional status. As far as risk of complications, please see the multiple medical comorbidities as noted above. Initial plan of care involves the interdisciplinary acute inpatient rehabilitation program with the goal of maximizing the patient's functional independence, so that she can hopefully return back to her prior living situation. Measurable functional goals would be for her to become modified independent with transfers, mobility and ADLs, so that she can return back to the home setting. Prognosis is reasonably good with estimated length of stay probably at least 10 days to 2 weeks and likely longer if needed. Potential [facility] [address] [place] [address] HISTORY AND PHYSICAL Name: CRISTOPHER YEBOAH Room #: 516-1 [facility] IN M.R.#: [id number] Admission: 11/07/16 Attend Phys: Cuauhtemoc Landeros MD Discharge: Date of : 38 Report #: [id number] barriers would include her multiple medical comorbidities and decreased functional status. <ELECTRONICALLY SIGNED> By: Cuauhtemoc Landeros MD 11/16/16 1350 0910 1009 Cuauhtemoc Landeros MD /nt
--- NOTE | ~2016-11-07 | HC ---
[facility] [place] [address] CONSULTATION Name: CRISTOPHER YEBOAH Room #: 516-1 ADM IN M.R.#: [id number] Admission: 11/07/16 Attend Phys: Cuauhtemoc Landeros MD Discharge: Date of : 38 Report #: [id number] THIS REPORT FOR: //name// CC: Cuauhtemoc Landeros Prudencio Chan DATE OF SERVICE: 11/11/2016 NEUROBEHAVIORAL STATUS EXAM ATTENDING PHYSICIAN: Cuauhtemoc Landeros M.D. SENIOR SOFTWARE QUALITY ANALYST: Loc Brand, PhD CLINICAL PRESENTATION: The patient is a 76-year-old female admitted to the rehabilitation unit at [facility] for comprehensive inpatient rehabilitation program to improve functional mobility, activities of daily living and self-care and mental status secondary to impairment from medical complexity and generalized debilitation. Her admitting diagnoses include pulmonary rehabilitation, acute respiratory failure with hypoxia, sepsis, bilateral basilar pneumonia with MRSA superinfection, history of lymphoma, history of breast cancer, the recent hemoptysis, dilated bile duct, degenerative arthritis, GERD and elevated lipids. A complete description of her medical condition, history and medications can be found in her medical record. Neuropsychological consultation was requested to provide assistance in the assessment of cognitive and emotional status and to provide recommendations and services. Prior to this most recent medical event, she was living independently in an apartment. The patient has 4 children. Her son is in an ear, nose, and throat physician and lives nearby. The patient is a high school graduate with 2 years of college. TECHNIQUES UTILIZED: Clinical interview, review of medical records, staff consultation and behavioral observation, mini mental status exam 2 standard version, clock drawing and category fluency assessment. EXAMINATION FINDINGS: The patient was alert and cooperative with the assessment. She accurately described the reason for her hospitalization. A period of delirium was initially described, that has resolved. Appetite, reported as diminished but improving. Increased anxiety is reprted. The anxiety is descrbed as associated with her oxygen level. She does not report difficulty with sleep. The patient denies cognitive disorder at this time. There is no report of auditory or visual hallucinations. There is no evidence of aphasia. [facility] [address] [place] [address] CONSULTATION Name: OBINNACRISTOPHER Room #: 516-1 [facility] IN ..#: [id number] Admission: 11/07/16 Attend Phys: Cuauhtemoc Landeros MD Discharge: Date of : 38 Report #: [id number] Her performance on the MMSE 2 brief version was very low with a raw score of 12 of 16. She was 3/3 for initial registration, 3/5 for orientation to time and 2/[address] and 2/3 for immediate recall of 3 items after a brief time delay and distraction. She had recently moved from [place] to [place] and attributes that recent move to uncertainty regarding the county, city and state of which she is currently located. Performance on the MMSE 2 standard version was within normal limits with a raw score 26 of 30. She was 5/5 for serial 7's. The patient could read and follow single command. She was also able to copy a simple geometric design, write a sentence and draw a clock with accurate placement of the hands. Her performance in category fluency suggests impairment. She had a raw score of 12, which is a T score of 40 and percentile rank of 16. Subtle decline in category fluency can suggest diminished executive functioning. Increased anxiety is noted which may also be interfering with her cognition returning to within normal limits. DIAGNOSTIC IMPRESSION: Adjustment disorder with anxious mood. Mild neurocognitive disorder, unspecified, without behavior disorder. RECOMMENDATIONS: The patient will continue to benefit from reassurance and support to assist in the management of anxiety. The use of relaxation techniques will also help manage high level of concern and worry regarding breathing and respiration. She may require increased supervision and structure upon her return to independent living. Her family should monitor her ability to comply with health care recommendations to insure she is able to manage safely. A followup neuropsychological assessment would be of benefit following approximately 4-6 weeks after hospitalization if concerns in regard to cognition remain. Thank you very much for allowing me to provide the consultation on this patient. <ELECTRONICALLY SIGNED> By: Loc Brand, PhD 11/12/16 1524 [id number] Loc Brand, PhD /nt
[~2016-11-07 10:41] MED LIST changes: +CRESTOR10 MG PO; +DIOVAN 80 MG TA80 M1 PO; +HYDROCHLOROTHIA25 M2 PO; +OMEPRAZOLE40 MG PO; +VALIUM5 MG PO
[2016-11-07] MEDS ORDERED: DUONEB 2.5-0.5 M3 ML INH (14:33)
[2016-11-07] MEDS ORDERED: ALBUTEROL2.5 MG/0.5 INH (14:33)
[2016-11-07] MEDS ORDERED: BISAC-EVAC10 MG RECTAL (14:33)
[2016-11-07] MEDS ORDERED: LIDODERM 5%1 PATC1 TRANSDERM (14:33)
[2016-11-07] MEDS ORDERED: MIRALAX17 GM PO (14:33)
[2016-11-07] MEDS ORDERED: CATHFLO ACT2 MG/VIAL INJECTION (14:33)
[2016-11-07] MEDS ORDERED: METAMUCIL PAC1 UDPKT PO (14:33)
[2016-11-07] MEDS ORDERED: PREDNISONE 20 M20 M1 PO (14:33)
[2016-11-07] MEDS ORDERED: DEEP SEA NASAL44 M1 NASAL (14:33)
[2016-11-07] MEDS ORDERED: ENOXAPARIN40 MG/0.1 SUBQ (14:33)
[2016-11-07] MEDS ORDERED: COLACE 100 MG100 MG PO (14:33)
[2016-11-07] MEDS ORDERED: MUCINEX600 MG PO (14:33)
[2016-11-07] MEDS ORDERED: PROBIOTIC1 EAC1 PO (14:35)
[2016-11-07] MEDS ORDERED: ZYVOX600 MG/300 IVPB (14:35)
[2016-11-07 21:00] VITALS: BP 120/56
[2016-11-08 05:10] VITALS: BP 120/60
[2016-11-08 06:52] LABS: HEMATOCRIT 29.6 % (37.0-47.0); MCH 31.7 pg (26.0-34.0); MCHC 33.8 g/dL (28.0-37.0); MCV 93.8 fL (80.0-100.0); RBC 3.16 mil/uL (4.20-5.00); RDW 15.2 % (10.5-14.5); WBC 9.6 thou/uL (4.0-11.0)
[2016-11-08 07:06] LABS: CREATININE 0.7 mg/dL (0.6-1.0); POTASSIUM 3.9 mmol/L (3.5-5.1)
[2016-11-08 09:08] VITALS: BP 102/60
[2016-11-08 16:23] VITALS: BP 116/51
[2016-11-09 04:11] VITALS: BP 120/66
[2016-11-09 06:48] VITALS: BP 135/71
[2016-11-09 16:00] VITALS: BP 120/60
[2016-11-10 05:49] VITALS: BP 142/74
[2016-11-10 16:15] VITALS: BP 122/63
[2016-11-10 16:35] LABS: HEMOGLOBIN 9.4 gm/dL (12.0-15.0); MANUAL DIFF YES; MCH 32.6 pg (26.0-34.0); MCHC 34.9 g/dL (28.0-37.0); MCV 93.3 fL (80.0-100.0); PLATELET COUNT 383 thou/uL (150-400); RBC 2.89 mil/uL (4.20-5.00)
[2016-11-10 16:46] LABS: CALCIUM 9.3 mg/dL (8.5-10.1); CREATININE 0.9 mg/dL (0.6-1.0); POTASSIUM 3.8 mmol/L (3.5-5.1)
[2016-11-10 16:59] LABS: ABSOLUTE NEUTROPHILS 7.9 thou/uL (1.4-8.2); TOTAL CELL COUNT 100
[2016-11-11 05:50] VITALS: BP 125/62
[2016-11-11 16:00] VITALS: BP 116/64
[2016-11-12 15:53] VITALS: BP 96/43
[2016-11-13 07:36] LABS: HEMATOCRIT 28.8 % (37.0-47.0); MCHC 34.8 g/dL (28.0-37.0); PLATELET COUNT 372 thou/uL (150-400); RBC 3.03 mil/uL (4.20-5.00); RDW 15.7 % (10.5-14.5); WBC 6.4 thou/uL (4.0-11.0)
[2016-11-13 07:38] LABS: MANUAL DIFF YES
[2016-11-13 07:52] LABS: ALBUMIN 2.7 g/dL (3.4-5.0); CALCIUM 9.3 mg/dL (8.5-10.1); CREATININE 0.9 mg/dL (0.6-1.0); POTASSIUM 4.1 mmol/L (3.5-5.1); TOTAL BILIRUBIN 0.5 mg/dL (<0.1-1.0); TOTAL PROTEIN 6.3 g/dL (6.4-8.2)
[2016-11-13 08:22] LABS: ABSOLUTE NEUTROPHILS 4.6 thou/uL (1.4-8.2); METAMYELOCYTES 1 %; TOTAL CELL COUNT 100
[2016-11-13 08:23] LABS: PLATELET ESTIMATE NORMAL
[2016-11-13 09:07] VITALS: BP 139/82
[2016-11-13 16:00] VITALS: BP 111/52
[2016-11-14 04:40] VITALS: BP 125/53
[2016-11-14 16:00] VITALS: BP 111/56
[2016-11-15 05:27] VITALS: BP 109/58
[2016-11-15 16:16] VITALS: BP 125/59
[2016-11-16 06:39] VITALS: BP 122/51
[2016-11-16 15:14] VITALS: BP 122/51
[2016-11-16 16:00] VITALS: BP 115/58
[2016-11-16 16:20] VITALS: BP 122/51
[2016-11-17 05:33] VITALS: BP 103/58
[2016-11-17 06:03] LABS: HEMATOCRIT 26.6 % (37.0-47.0); HEMOGLOBIN 9.2 gm/dL (12.0-15.0); MCH 32.8 pg (26.0-34.0); MCHC 34.7 g/dL (28.0-37.0); MCV 94.6 fL (80.0-100.0); PLATELET COUNT 276 thou/uL (150-400); RBC 2.81 mil/uL (4.20-5.00); RDW 15.6 % (10.5-14.5); WBC 3.8 thou/uL (4.0-11.0)
[2016-11-17 06:06] LABS: MANUAL DIFF YES
[2016-11-17 06:29] LABS: ALBUMIN 2.5 g/dL (3.4-5.0); CALCIUM 8.6 mg/dL (8.5-10.1); CREATININE 0.9 mg/dL (0.6-1.0); MAGNESIUM 1.3 mg/dL (1.8-2.4); POTASSIUM 3.3 mmol/L (3.5-5.1); TOTAL BILIRUBIN 0.5 mg/dL (<0.1-1.0); TOTAL PROTEIN 5.7 g/dL (6.4-8.2)
[2016-11-17] MEDS ORDERED: MAGOX 400400 MG PO (07:44)
[2016-11-17] MEDS ORDERED: OMEPRAZOLE40 MG PO (07:44)
[2016-11-17] MEDS ORDERED: MIRALAX17 GM PO (07:44)
[2016-11-17] MEDS ORDERED: LIDODERM 5%1 PATC1 TRANSDERM (07:44)
[2016-11-17] MEDS ORDERED: PREDNISONE 5 MG5 M1 PO (07:44)
[2016-11-17] MEDS ORDERED: COLACE 100 MG100 MG PO (07:44)
[2016-11-17 08:01] LABS: ABSOLUTE NEUTROPHILS 2.7 thou/uL (1.4-8.2); ANISOCYTOSIS 1+; TOTAL CELL COUNT 100
[2016-11-17] MEDS ORDERED: LINEZOLID600 MG PO (11:23)
[2016-11-17 13:27] VITALS: BP 122/51
[2016-11-17 16:21] VITALS: BP 122/51
== END 2016-11-17 14:30 | disposition home health service (06) | DRG 947 ==
PROVIDERS: Hospitalist; Physical Medicine & Rehabilitation; Specialist
DX: R53.81 Other malaise (principal); J96.01 Acute respiratory failure with hypoxia; J11.08 Influenza due to unidentified influenza virus with specified pneumonia; J15.212 Pneumonia due to Methicillin resistant Staphylococcus aureus; R04.2 Hemoptysis; E87.1 Hypo-osmolality and hyponatremia; E44.0 Moderate protein-calorie malnutrition; J44.0 Chronic obstructive pulmonary disease with (acute) lower respiratory infection; M19.90 Unspecified osteoarthritis, unspecified site; K21.9 Gastro-esophageal reflux disease without esophagitis; F43.22 Adjustment disorder with anxiety; G31.84 Mild cognitive impairment of uncertain or unknown etiology; Z96.651 Presence of right artificial knee joint; I10 Essential (primary) hypertension; E78.5 Hyperlipidemia, unspecified; D64.9 Anemia, unspecified; Z85.72 Personal history of non-Hodgkin lymphomas; Z85.3 Personal history of malignant neoplasm of breast; Z22.322 Carrier or suspected carrier of Methicillin resistant Staphylococcus aureus; Z88.8 Allergy status to other drugs, medicaments and biological substances; Z88.6 Allergy status to analgesic agent; Z68.31 Body mass index [BMI] 31.0-31.9, adult
CPT/HCPCS: 10112

== ENCOUNTER → 2016-12-01 | Outpatient (CLI) | payer OTHER, BC ==
[~2016-12-01] MED LIST changes: +ALBUTEROL2.5 MG/0.5 INH; +BISAC-EVAC10 MG RECTAL; +CATHFLO ACT2 MG/VIAL INJECTION; +COLACE 100 MG100 MG PO; +DEEP SEA NASAL44 M1 NASAL; +DUONEB 2.5-0.5 M3 ML INH; +ENOXAPARIN40 MG/0.1 SUBQ; +LIDODERM 5%1 PATC1 TRANSDERM; +LINEZOLID600 MG PO; +MAGOX 400400 MG PO; +METAMUCIL PAC1 UDPKT PO; +MIRALAX17 GM PO; +MUCINEX600 MG PO; +PREDNISONE 20 M20 M1 PO; +PREDNISONE 5 MG5 M1 PO; +PROBIOTIC1 EAC1 PO; +ZYVOX600 MG/300 IVPB
== END ==
LOC: RAD 10:46
DX: J15.212 Pneumonia due to Methicillin resistant Staphylococcus aureus (principal); J98.11 Atelectasis

== ENCOUNTER → 2016-12-08 | Outpatient (CLI) | payer OTHER, BC | LOC: RAD 11:45 | DX: J18.9 Pneumonia, unspecified organism (principal); R06.00 Dyspnea, unspecified ==

== ENCOUNTER → 2016-12-14 | Outpatient (CLI) | payer OTHER, BC | LOC: CAT 09:07 | DX: J18.9 Pneumonia, unspecified organism (principal); R06.00 Dyspnea, unspecified ==

== ENCOUNTER → 2017-01-25 | Outpatient (CLI) | payer OTHER, BC | LOC: RAD 13:58 | DX: R05 Cough (principal) ==

== ENCOUNTER → 2017-03-27 | Outpatient (CLI) | payer OTHER, BC ==
[2017-03-27 13:00] LABS: HEMATOCRIT 42.2 % (37.0-47.0); HEMOGLOBIN 14.2 gm/dL (12.0-15.0); MCH 31.1 pg (26.0-34.0); MCHC 33.6 g/dL (28.0-37.0); MCV 92.6 fL (80.0-100.0); PLATELET COUNT 334 thou/uL (150-400); RBC 4.56 mil/uL (4.20-5.00); RDW 15.3 % (10.5-14.5); WBC 8.8 thou/uL (4.0-11.0)
[2017-03-27 13:01] LABS: MANUAL DIFF YES
[2017-03-27 13:09] LABS: ANION GAP 9 mmol/L (7-16); BUN 15 mg/dL (7-18); CALCIUM 10.2 mg/dL (8.5-10.1); CHLORIDE 103 mmol/L (98-107); CO2 30 mmol/L (21-32); CREATININE 0.8 mg/dL (0.6-1.0); GLUCOSE 122 mg/dL (74-106); POTASSIUM 3.9 mmol/L (3.5-5.1); SODIUM 142 mmol/L (136-145)
[2017-03-27 13:15] LABS: ALBUMIN 4.1 g/dL (3.4-5.0); ALKALINE PHOSPHATASE 119 U/L (46-116); SGOT 17 U/L (15-37); SGPT 32 U/L (30-65); TOTAL BILIRUBIN 0.5 mg/dL (<0.1-1.0)
[2017-03-27 14:34] LABS: ABSOLUTE NEUTROPHILS 7.7 thou/uL (1.4-8.2); METAMYELOCYTES 1 %; PLATELET ESTIMATE NORMAL; TOTAL CELL COUNT 100
== END ==
LOC: CAT 12:08
PROVIDERS: Internal Medicine Pulmonary Disease
DX: J32.2 Chronic ethmoidal sinusitis (principal); J47.9 Bronchiectasis, uncomplicated; J90 Pleural effusion, not elsewhere classified; R09.89 Other specified symptoms and signs involving the circulatory and respiratory systems

== ENCOUNTER → 2017-05-31 | Outpatient (CLI) | payer OTHER, BC ==
--- NOTE | ~2017-05-31 | SLE ---
[facility] [address] [place] [address] POLYSOMNOGRAPHY STUDY Name: CRISTOPHER YEBOAH TONY Room #: REG [facility] M..#: [id number] Admission: 05/31/17 Attend Phys: Madi Barr MD Discharge: Date of : 38 Report #: [id number] THIS REPORT FOR: //name// CC: Madi Chan HISTORY OF PRESENT ILLNESS: A 77-year-old, height 5 feet 2 inches, weight 150 pounds. Usually goes to bed at 10:30, gets out of bed at 8:30-9, feels refreshed, positive snoring, no definite daytime somnolence. COMMENTS: Total recording time 411 minutes, total sleep time 262 minutes. Sleep efficiency 64%. Sleep latency 52 minutes, REM latency 223 minutes. SLEEP STAGE: 1-33%, 2-55%, REM-12%. RESPIRATORY SUMMARY: Central apnea 0, mixed apnea 0, obstructive apnea, 1, hypopnea 7. Apnea-hypopnea index of 1.8 events per sleep hour. Non-REM 0, REM AHI 14.5. Respiratory effort related arousal 0. All sleep was in the supine position. Periodic limb movement with arousal index of 14 events per sleep hour. Low oxygen saturation 82%, spending 36% of the recording time less than 90%. IMPRESSION: 1. Apnea-hypopnea index of 1.8 events per sleep hour. 2. Periodic limb movement with arousal index of 14 events per sleep hour. 3. No significant arrhythmia noted. 4. Abnormal sleep architecture. SUGGESTIONS: 1. The patient is known to a director and further discussion will be had regarding her periodic limb movement and restless legs, however, has been worked up in the past. 2. The patient has significant oxygen desaturation with known underlying lung disease and will continue to use oxygen. 3. Further evaluation regarding sinus issues will also be done. <ELECTRONICALLY SIGNED> By: Madi Barr MD 06/07/171940 18 06 Madi Barr MD /nt
== END ==
LOC: SLEEPLAB 10:57
DX: G47.33 Obstructive sleep apnea (adult) (pediatric) (principal)